=== PATIENT | male | born 1995 | race Caucasian/White ===

== ENCOUNTER 2021-07-03 17:57 | Emergency (ER) | payer BC ==
[~2021-07-03] VITALS: Ht 182.9 cm; Wt 58.0 kg
[2021-07-03] MEDS ORDERED: IBUPROFEN 400MG TABLET PO ONE (18:15)
[2021-07-03 18:25] VITALS: BP 124/88
== END 2021-07-03 19:57 | disposition home or self-care (01) ==
LOC: ER 17:57
DX: S69.82XA Other specified injuries of left wrist, hand and finger(s), initial encounter (principal); S63.617A Unspecified sprain of left little finger, initial encounter; X58.XXXA Exposure to other specified factors, initial encounter; Y93.9 Activity, unspecified
CPT/HCPCS: 73130; 99283